=== PATIENT | male | born 1950 | race Caucasian/White ===

== ENCOUNTER 2020-03-04 11:14 | Emergency (ER) | payer MEDICARE, OTHER ==
[~2020-03-04] VITALS: Ht 175.3 cm; Wt 93.2 kg
[~2020-03-04 11:14] MED LIST: LIDOcaine 1% W/epiNEPHrine 1:100,000 20ml vial ONE
[2020-03-04 11:18] VITALS: BP 189/106
[2020-03-04] MEDS ORDERED: acetaminophen 325mg tablet PO ONE (12:35)
--- NOTE | 2020-03-04 12:37 | NUR ---
Richard at bedside for
[2020-03-04] MEDS ORDERED: bacitracin 15gm ointment TP ONE (12:45)
[2020-03-04] MEDS ORDERED: TETanus/Pertussis (Acell)/Diphther VAC/PF (Tdap-Adult) 0.5ml syringe IMVAC ONE (12:45)
--- NOTE | 2020-03-04 13:29 | NUR ---
Dr. Ramos at bedside for laceration repair.
--- NOTE | 2020-03-04 14:09 | NUR ---
Pt awaiting CT.
[2020-03-04] MEDS ORDERED: iohexol 350MG/ML 100ml bottle IV ONE (14:19)
== END 2020-03-04 15:29 | disposition home or self-care (01) ==
LOC: ER 11:15
DX: S31.119A Laceration without foreign body of abdominal wall, unspecified quadrant without penetration into peritoneal cavity, initial encounter (principal); S30.1XXA Contusion of abdominal wall, initial encounter; T14.8XXA Other injury of unspecified body region, initial encounter; M54.5 Low back pain; M25.512 Pain in left shoulder; W18.30XA Fall on same level, unspecified, initial encounter; Y93.89 Activity, other specified; Y92.89 Other specified places as the place of occurrence of the external cause; Y99.8 Other external cause status
CPT/HCPCS: 12002; 74174; 90471; 90715; 99285; Q9967